=== PATIENT | female | born 1965 | race Caucasian/White ===

== ENCOUNTER → 2017-05-08 15:27 | Outpatient (CLI) | payer BC, SELFPAY ==
--- NOTE | 2017-05-08 15:31 | MM_ITS ---
MM Dig screening mamm BI w/CAD CAD Screening COMPARISON: Digital mammograms 03/02/2015 and 03/11/2016 INDICATION: There is a history of breast cancer in patient's mother diagnosed after menopause. TECHNIQUE: Standard CC and MLO images were obtained. R2 CAD reviewed. FINDINGS: Moderate diffuse fiberglass or densities are seen in the central portions of both breast. The findings are fairly symmetrical bilaterally. There is no new or suspicious lesion in either breast and there are no suspicious microcalcifications. There are fatty replaced nodes in both axilla. IMPRESSION: Stable exam with no suspicious lesion seen BI-RADS Category: 1 Negative RECOMMENDED FOLLOW-UP: 1YR - 1 YEAR FOLLOW-UP (A letter has been sent to the patient regarding results of the study.)
--- NOTE | 2017-05-08 15:31 | XR_ITS ---
XR DEXA axial skeleton HISTORY: ITS.REASON: osteoporosis screen ORDERING PHYSICIAN: Pan Moore MD PATIENT AGE: 51 years COMPARISON: None FINDINGS: The BMD measured at the left femoral neck is 0.820 g/cm squared with a T score of -1.6. This is considered Osteopenic according to the World Health Organization criteria. Fracture risk is Moderate. Treatment is advised. The lumbar spine density is 1.263 g/sq cm with a T score of 0.7 IMPRESSION: Osteopenia. Recommend follow-up exam April 2019
== END ==
PROVIDERS: PCP Physician Assistant; Visit Provider Obstetrics & Gynecology
DX: Z12.31 Encounter for screening mammogram for malignant neoplasm of breast (principal); Z13.820 Encounter for screening for osteoporosis
CPT/HCPCS: 77067; 77080

== ENCOUNTER → 2017-06-15 08:16 | Outpatient (POV) | payer BC, SELFPAY | PROVIDERS: Visit Provider Dermatology | DX: Z00.00 Encounter for general adult medical examination without abnormal findings (principal) ==

== ENCOUNTER → 2017-07-13 14:44 | Outpatient (POV) | payer BC, SELFPAY | PROVIDERS: Visit Provider Dermatology | DX: Z00.00 Encounter for general adult medical examination without abnormal findings (principal) ==

== ENCOUNTER → 2017-12-06 12:37 | Outpatient (CLI) | payer BC, SELFPAY ==
--- NOTE | 2017-12-06 12:43 | XR_ITS ---
XR DEXA axial skeleton HISTORY: ITS.REASON: Osteopenia ORDERING PHYSICIAN: Pan Moore MD PATIENT AGE: 52 years COMPARISON: 05/08/2017 FINDINGS: The BMD measured at the Right femoral neck is 0.810 g/cm squared with a T score of -1.6. This is considered Osteopenic according to the World Health Organization criteria. Fracture risk is Moderate. Treatment is advised. L1 L4 density has a T score of 0.5 which is decreased by 1.7% from the previous study. Hip is essentially unchanged. IMPRESSION: Osteopenia with moderate fracture risk. Treatment suggested. Recommend follow-up exam November 2019 based on these results
== END ==
PROVIDERS: PCP Emergency Medicine; Visit Provider Obstetrics & Gynecology
DX: Z78.0 Asymptomatic menopausal state (principal)
CPT/HCPCS: 77080

== ENCOUNTER → 2018-04-02 09:10 | Outpatient (CLI) | payer BC, SELFPAY ==
--- NOTE | 2018-04-02 09:11 | MM_ITS ---
MM Dig screening mamm BI w/CAD CAD Screening COMPARISON: Digital mammograms with CAD 05/08/2017 and 03/11/2016 INDICATION: There is a history of breast cancer in patient's mother diagnosed after menopause. TECHNIQUE: Standard CC and MLO images were obtained. R2 CAD reviewed. FINDINGS: Prominent diffuse heterogenic fibroglandular densities are seen throughout both breasts. The findings are bilateral and symmetrical. There is no suspicious lesion and there are no suspicious microcalcifications. IMPRESSION: Stable moderately dense and heterogenic parenchymal pattern BI-RADS Category: 1 Negative RECOMMENDED FOLLOW-UP: 1YR - 1 YEAR FOLLOW-UP (A letter has been sent to the patient regarding results of the study.)
== END ==
PROVIDERS: PCP Emergency Medicine; Visit Provider Obstetrics & Gynecology
DX: Z12.31 Encounter for screening mammogram for malignant neoplasm of breast (principal)
CPT/HCPCS: 77067

== ENCOUNTER → 2018-06-14 16:39 | Outpatient (CLI) | payer BC, SELFPAY ==
[2018-06-14 17:29] LABS: Basophils % 0.5 % (0.1-2.0); Eosinophils # 0.3 K/mm3 (0.0-0.4); Eosinophils % 4.2 % (0.1-12.0); Hematocrit 42.2 % (37.0-47.0); Hemoglobin 14.1 g/dL (12.2-16.2); Lymphocytes # 2.1 K/mm3 (0.7-4.5); Lymphocytes % 32.6 % (10-50); Mean Corpuscular HGB Conc 33.4 g/dL (31.8-35.4); Mean Corpuscular Hemoglobin 30.8 pg (27.0-31.2); Mean Corpuscular Volume 92.4 fl (81-99); Mean Platelet Volume 7.6 fl (7.4-10.4); Monocytes # 0.4 K/mm3 (0.1-1.0); Monocytes % 6.1 % (1.7-9.3); Neutrophils # 3.7 K/mm3 (1.8-7.8); Neutrophils % 56.4 % (37.0-80.0); Platelet Count 258 K/mm3 (142-424); Red Blood Count 4.56 M/mm3 (4.20-5.40); Red Cell Distribution Width 13.2 % (11.5-17.5); White Blood Count 6.5 K/mm3 (4.8-10.8)
[2018-06-14 18:11] LABS: Alanine Aminotransferase 72 U/L (12-78); Albumin Level 4.5 gm/dL (3.4-5.0); Albumin/Globulin Ratio 1.5 (1.1-1.8); Alkaline Phosphatase 49 U/L (46-116); Anion Gap 16.1 mEq/L (5-15); Aspartate Amino Transferase 52 U/L (15-37); Bilirubin,Total 0.3 mg/dL (0.2-1.0); Blood Urea Nitrogen 11 mg/dL (7-18); Calcium 9.7 mg/dL (8.5-10.1); Carbon Dioxide 27 mmol/L (21.0-32.0); Chloride 103 mmol/L (98-107); Creatinine,Serum 0.98 mg/dL (0.55-1.02); Estimated Glomerular Filt Rate 60 ml/min (>60); Free T4 (Free Thyroxine) 0.92 ng/dl (0.76-1.46); GFR (African American) 72 ML/MIN (>60); Glucose 111 mg/dL (74-106); Potassium 4.1 mmoL/L (3.5-5.1); Sodium 142 mmol/L (136-145); Thyroid Stimulating Hormone 1.18 uIU/ml (0.358-3.740); Total Protein,Serum 7.5 gm/dL (6.4-8.2)
[2018-06-14 20:53] LABS: Hemoglobin A1C 6.3 % (0.0-7.0)
[2018-06-16 18:10] LABS: Vitamin D 25 Hydroxy 33.3 ng/mL (30.0-100.0)
== END ==
PROVIDERS: Visit Provider Physician Assistant
DX: E11.9 Type 2 diabetes mellitus without complications (principal)
CPT/HCPCS: 80053; 82652; 83036; 84439; 84443; 85025

== ENCOUNTER 2019-03-04 08:30 | Outpatient (RCR) | payer BC, SELFPAY ==
--- NOTE | 2019-02-21 15:29 | HMH.OTOPEV ---
OT Inpatient Evaluation Rehab OT Outpatient Eval Start: 02/21/19 15:09 Freq: Status: Active Protocol: Document 02/21/19 15:09 RMARSHALL (Rec: 02/21/19 15:28 [id number] Electronically Signed By Tip Millard OT 02/21/19 15:09 Outpatient Therapy Subjective History Subjective History Pt is a 53 year old female who reports to therapy for initial evaluation to left elbow. Pt reports in january she began having pain in the lateral aspect of the left elbow. Pt does not recall a specific injury causing pain. 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 Pt has been to the doctor to have the elbow evaluated and was given steroids by mouth and a steroid shot. Pt reports decreased pain after steriods, but with certain motions patient's pain continues. 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 Pt will continue to be seen twice a week in order to address all deficits. Chief Complaint Pain,Weakness,Decreased Hooker Laster Strength Symptom Type Ache,Throb,Sharp,Dull,Stabbing Symptoms Relieved By Rest/Positioning Symptoms Aggravated By Physical Activity,Lifting Prior Functional Limitations None Current Functional Limitations Reaching,Lifting,Housework, Sleeping Symptom Description Intermittent,Pain at Rest Level of pain today (0-10) 0 Pain scale - at its best (0-10) 0 Pain scale - at its worst (0-10) 9 Shoulder/Elbow Eval Shoulder Objective Measurements Elbow Objective Measurements Elbow MMT Left Elbow Flexion Strength Grade 3 Fair Biceps Brachii Strength Grade 3 Fair Brachioradialis Strength Grade 3 Fair Brachialis Strength Grade 3 Fair Brachialis Strength Grade (Flexion) 3 Fair Elbow Extension Strength Grade 3 Fair Triceps Brachii Strength Grade 3 Fair Wrist/Hand Eval Hooker Laster/Pinch Strength Right Hooker Laster Strength Measurement (lbs) 15 Left Hooker Laster Strength Measurement (lbs) 8
== END 2019-03-04 08:35 | disposition home or self-care (01) ==
LOC: OT 08:30
PROVIDERS: PCP Emergency Medicine; Visit Provider Physician Assistant
DX: M70.32 Other bursitis of elbow, left elbow (principal); M77.12 Lateral epicondylitis, left elbow
CPT/HCPCS: 97014; 97035; 97140; 97166; G0283

== ENCOUNTER → 2019-03-25 14:16 | Outpatient (CLI) | payer BC, SELFPAY ==
--- NOTE | 2019-03-25 14:21 | XR_ITS ---
PROCEDURE: XR ELBOW LT MIN 3V CLINICAL INDICATION: Tennis elbow Left elbow pain COMPARISON: No exams were available for comparison FINDINGS: No fracture or dislocation. No lytic or blastic change. There is normal mineralization. The joint spaces are well-preserved. No significant degenerative/arthritic changes. No erosive changes evident. Other findings:None. IMPRESSION: No acute findings. Dictated by: Horace Mcdowell MD 03/25/2019 15:27 Electronically signed by Horace Mcdowell MD in [place] 03/25/2019 15:27
== END ==
PROVIDERS: PCP Emergency Medicine; Visit Provider Orthopaedic Surgery
DX: M77.12 Lateral epicondylitis, left elbow (principal)
CPT/HCPCS: 73080

== ENCOUNTER → 2019-04-30 15:11 | Outpatient (CLI) | payer BC, SELFPAY ==
--- NOTE | 2019-04-30 15:12 | MM_ITS ---
PROCEDURE: MM DIG SCREENING MAMM BI W/CAD CLINICAL INDICATION: screening There is a history of breast cancer patient's mother diagnosed after menopause. COMPARISON: [facility] DIG MAMM-SCREEN CARLOS W/CAD from 03/11/2016 [facility] MM Dig screening mamm BI w/CAD from 05/08/2017 [facility] MM Dig screening mamm BI w/CAD from 04/02/2018 TECHNIQUE: Standard CC and MLO images and 3D Tomosynthesis was obtained. R2 CAD reviewed. FINDINGS: Moderate diffuse somewhat heterogenic fibroglandular densities are seen in both breasts. The findings are bilateral and symmetrical. There is no new or suspicious lesion in either breast and no suspicious microcalcifications. Sukhwinder images were reviewed. IMPRESSION: Moderate breast density with no suspicious lesions seen BI-RAD Category: 1 Negative FOLLOW-UP: 1YR 1 Year Follow-up (A letter has been sent to the patient regarding results of the study.) Dictated by: Dr. Mohamud Claudio MD 05/01/2019 10:[address] Mohamud Claudio MD in [place] 05/01/2019 10:48
--- NOTE | 2019-04-30 15:12 | XR_ITS ---
PROCEDURE: XR DEXA AXIAL SKELETON CLINICAL HISTORY: screening Post menopausal female COMPARISON: No exams were available for comparison FINDINGS: Utilizing the left femoral neck bone mineral density is 0.6 5 grams/squared centimeter. T-score -1.7 would be compatible with osteopenia. Ten year fracture risk for major osteoporotic fracture is calculated to be 11 percent and that for hip fracture 0.6 percent. Using L1 through L4 vertebrae total bone mineral density is 0.98 grams/squared centimeter. T-score -0.[address] the patient in the normal mineralization category. IMPRESSION: Osteopenia of the hip and normal mineralization of the spine Dictated by: Jimbo Sumner 05/01/2019 09:15 Electronically signed by Jimbo Sumner in [place] 05/01/2019 09:15
== END ==
PROVIDERS: PCP Emergency Medicine; Visit Provider Obstetrics & Gynecology
DX: R92.8 Other abnormal and inconclusive findings on diagnostic imaging of breast (principal); Z78.0 Asymptomatic menopausal state; Z13.820 Encounter for screening for osteoporosis
CPT/HCPCS: 77063; 77067; 77080

== ENCOUNTER → 2019-12-10 16:56 | Outpatient (CLI) | payer BC, SELFPAY ==
[2019-12-13 04:28] LABS: FSH 23.2 mIU/mL (.)
== END ==
PROVIDERS: Visit Provider Obstetrics & Gynecology
DX: N95.0 Postmenopausal bleeding (principal)
CPT/HCPCS: 36415; 83001

== ENCOUNTER → 2019-12-17 15:25 | Outpatient (CLI) | payer BC, SELFPAY ==
--- NOTE | 2019-12-17 15:34 | US_ITS ---
PROCEDURE: US TRANSVAGINAL CLINICAL INDICATION: US T/V- post menopausal bleeding COMPARISON: No exams were available for comparison FINDINGS: UTERUS: 8cm x 5cmx 5cm with a combined endometrial thickness of 4.9mm LEFT OVARY: [id number] with a volume of 20.5ml. RIGHT OVARY: [id number] with a volume of 3.3ml. The uterus is retroverted. No uterine mass is evident. The left ovary is enlarged at 5 2 cm containing multiple cysts the largest is at 3 cm and contains a small septation peripherally. The right ovary contains a small septated cyst at 17 mm.. IMPRESSION: Retroverted uterus Bilateral ovarian cysts with thin septations. Consider follow-up to confirm resolution or stability. Dictated by: Horace Mcdowell MD 12/17/2019 18:19 Horace Mcdowell MD in [place] 12/17/2019 18:19
== END ==
PROVIDERS: PCP Physician Assistant; Visit Provider Obstetrics & Gynecology
DX: N95.0 Postmenopausal bleeding (principal)
CPT/HCPCS: 76830

== ENCOUNTER → 2020-03-10 08:55 | Outpatient (CLI) | payer BC, SELFPAY ==
--- NOTE | 2020-03-10 08:55 | US_ITS ---
PROCEDURE: US TRANSVAGINAL Referring Doctor: Kenneth Kebede Patient Age:54Y CLINICAL INDICATION: Look at ovarian cysts and postmenopausal bleeding Amenorrhea for 2 years now with heavy vaginal bleeding. COMPARISON: US US TRANSVAGINAL from 12/17/2019 FINDINGS: uterus: Retroverted normal size: 7.6 cm in length and 4.9 cm AP X 5.7 cm wide. Endometrial stripe of mildly thickened measuring up to 10.6 mm AP . Small nabothian cyst noted but No evident fluid cul-de-sac. Adequate color Doppler flow to both ovaries Right ovary normal size measuring 2.9 cm times 2.1 cm x 2.3 cm. Right ovary with 1.9 cm x 1.8 X 1.6 cm follicular cyst Left ovary enlarged measuring 4.1 cm x 1.8 cm x 1.1 cm. The left ovary contains a 2.7 x 1.4 cm cyst/follicular cyst I would note there has been regression of this left ovarian cysts the the the when compared back to December 2019 IMPRESSION: Normal size retroverted uterus. Generous endometrial stripe-measuring nearly 1.1 cm Left ovary measure 4.1 cm and contains a 2.7 cm cyst; but there has been regression of the left ovarian cyst since December Dictated by: Vidal Valverde MD 03/14/2020 09:47 Vidal Valverde MD in [place] 03/14/2020 09:47
== END ==
PROVIDERS: PCP Physician Assistant; Visit Provider Nurse Practitioner Obstetrics & Gynecology
DX: N83.209 Unspecified ovarian cyst, unspecified side (principal); N95.0 Postmenopausal bleeding
CPT/HCPCS: 76830

== ENCOUNTER → 2020-03-11 08:28 | Outpatient (CLI) | payer BC, SELFPAY ==
[2020-03-11 09:06] LABS: Basophils # 0.1 K/mm3 (0-0.2); Basophils % 1.2 % (0.1-2.0); Eosinophils # 0.1 K/mm3 (0.0-0.4); Eosinophils % 2.4 % (0.1-12.0); Hematocrit 47.1 % (37.0-47.0); Hemoglobin 14.5 g/dL (12.2-16.2); Lymphocytes # 1.8 K/mm3 (0.7-4.5); Lymphocytes % 32.1 % (10-50); Mean Corpuscular HGB Conc 30.7 g/dL (31.8-35.4); Mean Corpuscular Hemoglobin 30.1 pg (27.0-31.2); Mean Platelet Volume 7.1 fl (7.4-10.4); Monocytes # 0.4 K/mm3 (0.1-1.0); Monocytes % 6.3 % (1.7-9.3); Neutrophils # 3.2 K/mm3 (1.8-7.8); Platelet Count 236 K/mm3 (142-424); Red Blood Count 4.81 M/mm3 (4.20-5.40); Red Cell Distribution Width 13.3 % (11.5-17.5); White Blood Count 5.6 K/mm3 (4.8-10.8)
[2020-03-11 09:35] LABS: Chloride 103 mmol/L (98-107); Potassium 4.5 mmoL/L (3.5-5.1); Sodium 139 mmol/L (136-145)
[2020-03-11 09:37] LABS: Alanine Aminotransferase 48 U/L (12-78); Aspartate Amino Transferase 45 U/L (14-36); Blood Urea Nitrogen 15 mg/dl (7-17); Estimated Glomerular Filt Rate 75 ml/min (>60); GFR (African American) 91 ML/MIN (>60)
[2020-03-11 09:38] LABS: Albumin Level 4.6 g/dl (3.5-5.0); Albumin/Globulin Ratio 1.4 (1.1-1.8); Alkaline Phosphatase 74 U/L (38-126); Anion Gap 13.5 mEq/L (5-15); Bilirubin,Total 0.6 mg/dl (0.2-1.3); Calcium 9.7 mg/dl (8.4-10.2); Carbon Dioxide 27 mmol/L (22.0-30.0); Chol/HDL Ratio 2.9 (1-3.5); Cholesterol 201 mg/dl (140-200); Globulin 3.3 g/dL (1.3-3.2); Glucose 143 mg/dl (74-100); HDL Cholesterol 69 mg/dl (40-60); Total Protein,Serum 7.9 g/dl (6.3-8.2); Triglycerides 133 mg/dl (30-150); VLDL Cholesterol 27 mg/dL (0-40)
[2020-03-11 09:51] LABS: Direct LDL Cholesterol 99.21 mg/dL (100-129)
[2020-03-11 09:55] LABS: Triiodothryronine (T3) Uptake 29 % (23.5-40.5)
[2020-03-11 09:56] LABS: Free Thyroxine Index 2.8 ug/dL (5.93-13.13); T4 (Thyroxine) 9.5 ug/dl (5.53-11.0)
[2020-03-11 10:09] LABS: Thyroid Stimulating Hormone 1.93 uIU/mL (0.465-4.68)
[2020-03-12 10:36] LABS: FSH 16.9 mIU/mL (.)
== END ==
PROVIDERS: Visit Provider Nurse Practitioner Obstetrics & Gynecology
DX: Z01.419 Encounter for gynecological examination (general) (routine) without abnormal findings (principal); N95.0 Postmenopausal bleeding; N93.9 Abnormal uterine and vaginal bleeding, unspecified; N95.1 Menopausal and female climacteric states; R53.83 Other fatigue
CPT/HCPCS: 36415; 80053; 80061; 82670; 83001; 83002; 84436; 84443; 84479; 85025

== ENCOUNTER 2021-06-08 11:59 | Emergency (ER) | payer BC, SELFPAY ==
[2021-06-08 14:24] VITALS: BP 141/92; PULSE 101; RESP 20; TEMP 36.6; O2SAT 97; BMI 32.1
[2021-06-08 14:24] LABS: Apearance,Urine Clear (Clear); Bilirubin,Urine Negative (Negative); Blood, Urine 1+ (Negative); Color,Urine Yellow (Yellow); Glucose,Urine (UA) 250 (Negative); Ketones,Urine Negative (Negative); Protein,Urine Negative (Negative); UTC Leukocyte Esterase,Urine Trace (Negative); UTC Nitrate,Urine Negative (Negative); Urobilinogen,Urine 0.2 EU/dl (0.2)
--- NOTE | 2021-06-08 14:46 | HMH.EDUTC ---
[facility] Disposition Clinical Impression: UTI (urinary tract infection) Qualifiers: Urinary tract infection type: site unspecified Hematuria presence: with hematuria Qualified Code(s): N39.0 - Urinary tract infection, site not specified Disposition: Home, Self-Care Condition on Discharge: Good Instructions: Urinary Tract Infection, DI for Urinary Tract Infection (UTI) Additional Instructions: *Increase fluids. Water not Soda or Tea *Start antibiotic immediately and be sure to take as ordered for the FULL length of time although you should start to see improvement over the next 48 hours *Pyridium as needed Remember this medication will turn your urine [place]. This is normal but it will stain what ever it gets on *You should not use Pyridium for more than 48 hours. If so , follow up with your primary physician to review urine culture and ensure that antibiotic is adequate for infection *Be SURE to follow up anytime for new or worsening symptoms with your family doctor. AND in 48 hours for urine culture results with your family doctor, if you do not have a doctor then you may call back to the [facility] for urine culture results and further treatment. We do recommend that you choose and establish care with a Primary Care Physician. AND follow up with them in 10-14 days to repeat UA to ensure infection is resolved and blood no longer present *Be sure to let your PCP know that we sent urine cultures from the [facility] so they can follow up to ensure that you area the on the correct antibiotic Call your doctor office and make appointment for 48 hours (2 days from today) to follow up and get the results of your urine culture and further treatment Make sure to call and make appointment for follow up for monitoring your Diabetes Straight to ER if any life threatening symptoms Prescriptions: Nitrofurantoin Monohyd/M-Cryst [Macrobid 100 mg Capsule] 100 mg PO BID 7 Days #14 cap Transmission Status: Pending to [facility] # Phenazopyridine HCl [Pyridium 200mg Tablet] 200 pow PO TID #6 tab Transmission Status: Pending to [facility] # Referrals: Zahira Olivera PA [Primary Care Provider] - As needed Time of Disposition: 15:15 Medical Decision Making - Jonathan Inquiry Pt receiving controlled substance: No Jonathan was queried for this patient: No Vital Signs: 06/08/21 14:24 Temperature 98 F Temperature Source Oral Pulse Rate [Left] 101 H Respiratory Rate 20 Blood Pressure [Right Arm] 141/92 H Blood Pressure Mean [Right Arm] 108 02 Sat by Pulse Oximetry 97 - Lab Data Lab results reviewed: Yes: I reviewed the patient's lab results. Lab Results 06/08/21 14:23: Urine Color Yellow, Urine Appearance Clear, Urine pH 7.0, Ur Specific [place] 1.020, Urine Protein Negative, Urine Glucose (UA) 250, Urine Ketones Negative, Urine Blood 1+, Urine Nitrate Negative, Urine Bilirubin Negative, Urine Urobilinogen 0.2, Ur Leukocyte Esterase Trace Orders (Tests/Meds): ORDERS Category Date Time Status Urine Culture Stat Micro 06/08/21 15:05 Ordered Medical Decision Narrative: discussed with patient about glucose in urine and patient advised that she controls her diabetes with diet and she will follow up with her PCP for further evaluation and treatment [facility] HPI - General Stated complaint: possible kidney inf Time Seen by Provider: 06/08/21 14:47 Mode of Arrival: Ambulatory Source of Information: Patient Limitations: No Limitations Description of Symptoms (Recalled from Triage Doc. by RN): pt c/o burning and frequent urination. pt states she is also having lower abd pain. HEENT Symptoms (Recalled from RN notes): No Resp Symptoms (Recalled from RN notes): No Skin Symptoms (Recalled from RN notes): No MS Symptoms (Recalled from RN notes): No Functional Status (Recalled from RN notes): wnl - History of Present Illness Provider Complaint: Patient states that she has been having burning with urination and feeli
[2021-06-08 15:33] VITALS: BP 0/0; PULSE 108; RESP 20; TEMP 36.6
== END 2021-06-08 15:35 | disposition home or self-care (01) ==
PROVIDERS: Emergency Provider Nurse Practitioner; PCP Physician Assistant
DX: N30.01 Acute cystitis with hematuria (principal)
CPT/HCPCS: 81003; 87086; 87088; 87186; 99212; G0463

== ENCOUNTER → 2021-06-14 15:57 | Outpatient (CLI) | payer BC, SELFPAY ==
[2021-06-14 13:19] LABS: Basophils # 0.1 K/mm3 (0-0.2); Basophils % 1.4 % (0.1-2.0); Eosinophils # 0.1 K/mm3 (0.0-0.4); Eosinophils % 1.3 % (0.1-12.0); Hematocrit 49.4 % (37.0-47.0); Hemoglobin 15.7 g/dL (12.2-16.2); Lymphocytes # 1.7 K/mm3 (0.7-4.5); Lymphocytes % 28.6 % (10-50); Mean Corpuscular HGB Conc 31.7 g/dL (31.8-35.4); Mean Corpuscular Hemoglobin 31.1 pg (27.0-31.2); Mean Corpuscular Volume 97.9 fl (81-99); Mean Platelet Volume 8.9 fl (7.4-10.4); Monocytes # 0.5 K/mm3 (0.1-1.0); Monocytes % 7.6 % (1.7-9.3); Neutrophils # 3.7 K/mm3 (1.8-7.8); Neutrophils % 61.2 % (37.0-80.0); Platelet Count 287 K/mm3 (142-424); Red Blood Count 5.05 M/mm3 (4.20-5.40); Red Cell Distribution Width 13.4 % (11.5-17.5)
[2021-06-14 13:38] LABS: Hemoglobin A1C 7.5 % (4.0-6.0)
[2021-06-14 14:04] LABS: Alanine Aminotransferase 51 U/L (12-78); Albumin Level 4.8 g/dl (3.5-5.0); Albumin/Globulin Ratio 1.5 (1.1-1.8); Alkaline Phosphatase 51 U/L (38-126); Anion Gap 13.2 mEq/L (5-15); Aspartate Amino Transferase 54 U/L (14-36); Bilirubin,Total 0.8 mg/dl (0.2-1.3); Blood Urea Nitrogen 21 mg/dl (7-17); Calcium 9.8 mg/dl (8.4-10.2); Carbon Dioxide 27 mmol/L (22.0-30.0); Chloride 104 mmol/L (98-107); Chol/HDL Ratio 4.2 (1-3.5); Cholesterol 197 mg/dl (140-200); Estimated Glomerular Filt Rate 104 ml/min (>60); GFR (African American) 126 ML/MIN (>60); Globulin 3.1 g/dL (1.3-3.2); Glucose 94 mg/dl (74-100); HDL Cholesterol 47 mg/dl (40-60); Potassium 5.2 mmoL/L (3.5-5.1); Sodium 139 mmol/L (136-145); Total Protein,Serum 7.9 g/dl (6.3-8.2); Triglycerides 142 mg/dl (30-150); VLDL Cholesterol 28 mg/dL (0-40)
[2021-06-14 14:14] LABS: 25-OH Vitamin D, Total 28.6 ng/mL (30-100)
[2021-06-14 14:15] LABS: Direct LDL Cholesterol 105.46 mg/dL (100-129)
[2021-06-14 14:34] LABS: Thyroid Stimulating Hormone 1.38 uIU/mL (0.465-4.68)
== END ==
PROVIDERS: Visit Provider Physician Assistant
DX: N39.0 Urinary tract infection, site not specified (principal); R81 Glycosuria; E55.9 Vitamin D deficiency, unspecified
CPT/HCPCS: 80053; 80061; 82306; 83036; 84443; 85025; 87086

== ENCOUNTER → 2021-06-18 13:23 | Outpatient (CLI) | payer BC, SELFPAY ==
--- NOTE | 2021-06-18 13:24 | MM_ITS ---
PROCEDURE INFORMATION: Exam: MG Bilateral Screening 3D Mammography Exam date and time: 06/18/2021 1:27 PM Age: 55 years old Clinical indication: Screening examination; Additional info: Screening mammogram TECHNIQUE: Imaging protocol: Bilateral Screening tomosynthesis and 2D mammography including computer-aided detection (CAD) when performed. COMPARISON: 1. MG MM DIG SCREENING MAMM BI W/CAD 04/30/2019 3:45 PM 2. MG [facility] MM Dig screening mamm BI w/CAD 04/02/2018 9:34 AM 3. MG [facility] MM Dig screening mamm BI w/CAD 05/08/2017 3:51 PM 4. MG [facility] DIG MAMM-SCREEN CRALOS W/CAD 03/11/2016 4:27 PM FINDINGS: MAMMOGRAPHY: Breast composition: The breast tissue is composed of scattered areas of fibroglandular density. Mass: No suspicious mass. Architectural distortion: None. Calcifications: No suspicious calcifications. Asymmetric density: None. Skin thickening: None. Axillary adenopathy: None. IMPRESSION: No mammographic evidence of malignancy. Annual screening is recommended unless otherwise clinically indicated. ASSESSMENT: BI-RADS Category 1: Negative
== END ==
PROVIDERS: PCP Physician Assistant; Visit Provider Nurse Practitioner Obstetrics & Gynecology
DX: Z12.31 Encounter for screening mammogram for malignant neoplasm of breast (principal)
CPT/HCPCS: 77063; 77067

== ENCOUNTER → 2021-08-13 09:57 | Outpatient (CLI) | payer BC, SELFPAY | PROVIDERS: PCP Nurse Practitioner Family; Visit Provider Nurse Practitioner Family | DX: L98.9 Disorder of the skin and subcutaneous tissue, unspecified (principal); S90.862D Insect bite (nonvenomous), left foot, subsequent encounter; B95.7 Other staphylococcus as the cause of diseases classified elsewhere | CPT/HCPCS: 87070; 87077; 87186; 87205 ==

== ENCOUNTER → 2021-09-23 07:06 | Outpatient (CLI) | payer BC, SELFPAY ==
[2021-09-22 17:47] LABS: Hemoglobin A1C 5.5 % (4.0-6.0)
== END ==
PROVIDERS: PCP Physician Assistant; Visit Provider Physician Assistant
DX: E11.9 Type 2 diabetes mellitus without complications (principal); Z79.84 Long term (current) use of oral hypoglycemic drugs
CPT/HCPCS: 83036

== ENCOUNTER → 2021-09-30 10:00 | Outpatient (CLI) | payer BC, SELFPAY | PROVIDERS: PCP Physician Assistant; Visit Provider Physician Assistant | DX: U07.1 COVID-19 (principal) | CPT/HCPCS: C9803; U0003; U0005 ==

== ENCOUNTER 2021-12-28 16:30 | Outpatient (RCR) | payer BC, SELFPAY | END 2021-12-28 16:35 | disposition home or self-care (01) | LOC: PT 16:30 | PROVIDERS: PCP Physician Assistant; Visit Provider Nurse Practitioner Family | DX: M25.561 Pain in right knee (principal) | CPT/HCPCS: 97010; 97014; 97110; 97163; G0283 ==

== ENCOUNTER → 2022-02-17 06:36 | Outpatient (CLI) | payer BC, SELFPAY ==
[2022-02-17 17:24] LABS: Adenovirus,PCR Not Detected (NotDetected); Bordetella Pertussis Not Detected (NotDetected); Chlamydophila Pneumoniae, PCR Not Detected (NotDetected); Coronavirus 19, PCR Not Detected (NotDetected); Coronavirus 229E Not Detected (NotDetected); Coronavirus NL63 Not Detected (NotDetected); Coronavirus OC43 Not Detected (NotDetected); Human Metapneumovirus Not Detected (NotDetected); Influenza A, PCR Not Detected (NotDetected); Influenza AH1, 2009 Not Detected (NotDetected); Influenza AH1, PCR Not Detected (NotDetected); Influenza AH3,PCR Not Detected (NotDetected); Influenza B, PCR Not Detected (NotDetected); Mycoplasma Pneumoniae, PCR Not Detected (NotDetected); Parainfluenza 1, PCR Not Detected (NotDetected); Parainfluenza 2, PCR Not Detected (NotDetected); Parainfluenza 3, PCR Not Detected (NotDetected); Respiratory Syncytial Virus Not Detected (NotDetected); Rhinovirus/Enterovirus Not Detected (NotDetected)
[2022-02-18 00:34] LABS: Coronovirus HKU1,PCR Detected (NotDetected); Parainfluenza 4, PCR Detected (NotDetected)
== END ==
PROVIDERS: PCP Nurse Practitioner Family; Visit Provider Nurse Practitioner Family
DX: U07.1 COVID-19 (principal); J20.4 Acute bronchitis due to parainfluenza virus
CPT/HCPCS: 87581; 87632; 87798; C9803; U0003; U0005

== ENCOUNTER → 2022-06-20 16:13 | Outpatient (CLI) | payer BC, SELFPAY ==
--- NOTE | 2022-06-20 16:13 | MM_ITS ---
PROCEDURE INFORMATION: Exam: MG Bilateral Screening 3D Mammography Exam date and time: 06/20/2022 4:05 PM Age: 56 years old Clinical indication: Screening. Her mother had breast cancer in her 70s. TECHNIQUE: Imaging protocol: Bilateral Screening tomosynthesis and 2D mammography including computer-aided detection (CAD) when performed. COMPARISON: 1. MG MM DIG SCREENING MAMM BI W/CAD 06/18/2021 1:27 PM 2. MG MM DIG SCREENING MAMM BI W/CAD 04/30/2019 3:45 PM 3. MG [facility] MM Dig screening mamm BI w/CAD 04/02/2018 9:34 AM 4. MG [facility] MM Dig screening mamm BI w/CAD 05/08/2017 3:51 PM FINDINGS: MAMMOGRAPHY: Breast composition: There are scattered areas of fibroglandular density. Mass: No suspicious mass. Architectural distortion: None. Calcifications: No suspicious calcifications. Asymmetric density: None. Skin thickening: None. Axillary adenopathy: None. IMPRESSION: No mammographic evidence of malignancy. Annual screening is recommended unless otherwise clinically indicated. ASSESSMENT: BI-RADS Category 1: Negative
== END ==
PROVIDERS: PCP Nurse Practitioner Family; Visit Provider Nurse Practitioner Obstetrics & Gynecology
DX: Z12.31 Encounter for screening mammogram for malignant neoplasm of breast (principal)
CPT/HCPCS: 77063; 77067

== ENCOUNTER → 2022-07-23 08:07 | Outpatient (CLI) | payer BC, SELFPAY ==
[2022-07-23 09:42] LABS: Basophils # 0.1 K/mm3 (0-0.2); Basophils % 0.9 % (0.1-2.0); Eosinophils # 0.2 K/mm3 (0.0-0.4); Eosinophils % 3.1 % (0.1-12.0); Hematocrit 46.4 % (37.0-47.0); Hemoglobin 14.7 g/dL (12.2-16.2); Lymphocytes # 1.6 K/mm3 (0.7-4.5); Lymphocytes % 30.9 % (10-50); Mean Corpuscular HGB Conc 31.7 g/dL (31.8-35.4); Mean Corpuscular Hemoglobin 30.1 pg (27.0-31.2); Mean Corpuscular Volume 94.9 fl (81-99); Mean Platelet Volume 7.7 fl (7.4-10.4); Monocytes # 0.4 K/mm3 (0.1-1.0); Neutrophils # 3.1 K/mm3 (1.8-7.8); Neutrophils % 58.2 % (37.0-80.0); Platelet Count 224 K/mm3 (142-424); Red Blood Count 4.89 M/mm3 (4.20-5.40); Red Cell Distribution Width 13.3 % (11.5-17.5); White Blood Count 5.3 K/mm3 (4.8-10.8)
[2022-07-23 10:19] LABS: Alanine Aminotransferase 31 U/L (12-78); Albumin Level 4.4 g/dl (3.5-5.0); Albumin/Globulin Ratio 1.6 (1.1-1.8); Alkaline Phosphatase 50 U/L (38-126); Anion Gap 17.3 mEq/L (5-15); Aspartate Amino Transferase 36 U/L (14-36); Bilirubin,Total 0.6 mg/dl (0.2-1.3); Blood Urea Nitrogen 15 mg/dl (7-17); Carbon Dioxide 28 mmol/L (22.0-30.0); Chloride 98 mmol/L (98-107); Chol/HDL Ratio 3.1 (1-3.5); Cholesterol 156 mg/dl (140-200); Estimated Glomerular Filt Rate 74 ml/min (>60); GFR (African American) 90 ML/MIN (>60); Globulin 2.8 g/dL (1.3-3.2); Glucose 110 mg/dl (74-100); HDL Cholesterol 50 mg/dl (40-60); Potassium 4.3 mmoL/L (3.5-5.1); Sodium 139 mmol/L (136-145); Total Protein,Serum 7.2 g/dl (6.3-8.2); Triglycerides 110 mg/dl (30-150); VLDL Cholesterol 22 mg/dL (0-40)
[2022-07-23 10:31] LABS: Direct LDL Cholesterol 88.67 mg/dL (100-129)
[2022-07-23 11:04] LABS: Hemoglobin A1C 5.9 % (4.0-6.0)
== END ==
PROVIDERS: PCP Physician Assistant; Visit Provider Nurse Practitioner Obstetrics & Gynecology
DX: E11.9 Type 2 diabetes mellitus without complications (principal); Z79.84 Long term (current) use of oral hypoglycemic drugs
CPT/HCPCS: 36415; 80053; 80061; 82306; 83036; 85025

== ENCOUNTER → 2022-08-24 09:05 | Outpatient (CLI) | payer BC, SELFPAY ==
--- NOTE | 2022-08-24 09:06 | XR_ITS ---
FINAL REPORT CLINICAL HISTORY: .menopausal COMPARISON: None FINDINGS: Using L1-4, the bone mineral density of the spine is 1.005 g/cm2, corresponding to T-score of -0.4, within normal range. Using the left hip, the bone mineral density of the femoral neck is 0.688 g/cm2, corresponding to a T-score of -1.5, consistent with low bone density. Using the right hip, the bone mineral density of the femoral neck is 0.749 g/cm2, corresponding to a T-score of -0.9, within normal range. FRAX 10 year fracture risk is 0.5% for a hip fracture and 13% for a major osteoporotic fracture. NOTE: T-score: Standard deviation compared with peak bone mass of young adult mean. *Following the recommendations of the International Society of Bone densitometry, classification of hip BMD is based on the lower of two T-scores; total hip or femoral neck. IMPRESSION: Normal bone mineral density of the lumbar spine and right hip, with diminished bone mineral density in the left hip consistent with low bone density. Reviewed, Interpreted and Dictated by Wang Magaña III, MD Transcribed by Justina Acevdeo Authenticated and . [facility]
== END ==
PROVIDERS: PCP Physician Assistant; Visit Provider Nurse Practitioner Obstetrics & Gynecology
DX: Z78.0 Asymptomatic menopausal state (principal); Z13.820 Encounter for screening for osteoporosis
CPT/HCPCS: 77080

== ENCOUNTER 2022-11-16 10:51 | Emergency (ER) | payer OTHER, BC, SELFPAY ==
--- NOTE | 2022-11-16 11:11 | XR_ITS ---
FINAL REPORT CLINICAL HISTORY: hurt at work, rt knee pain FINDINGS: Right knee Three views were obtained. There is no acute fracture or dislocation. There are mild degenerative changes. Moderate joint effusion is identified. IMPRESSION: Moderate joint effusion. Reviewed, Interpreted and Dictated by Wang Magaña III, MD Transcribed by Karissa Poole Authenticated and [facility]
[2022-11-16 11:30] VITALS: BP 159/93; PULSE 74; RESP 20; TEMP 36.9; O2SAT 96; BMI 29.9
--- NOTE | 2022-11-16 11:40 | EXP.UTC ---
Discharge Plan Disposition Patient Disposition: Home, Self-Care Condition: Good Prescriptions Prescriptions: No Action (DME) blood sugar diagnostic strip See Dose Instructions .ROUTE .MEDSUPPLY Qty: 20 Rx Instructions: As directed (DME) lancets [OneTouch Delica Lancets] 33 gauge misc See Rx Instructions .Route Qty: 100 3RF Rx Instructions: Test glucose TID raloxifene [Evista] 60 mg tablet 60 mg PO DAILY Qty: 30 11RF glipizide 5 mg tablet extended release 24hr 5 mg PO DAILY Qty: 90 3RF ergocalciferol (vitamin D2) 1,250 mcg (50,000 unit) capsule 1,250 mcg PO WEEKLY Qty: 14 3RF (DME) OneTouch Verio test strips Strip See Rx Instructions .ROUTE .MEDSUPPLY Qty: 100 3RF Rx Instructions: Test glucose TID pramipexole 0.5 mg tablet See Rx Instructions .ROUTE .COMPLEX Qty: 90 3RF Dose Instruction: TAKE 1 TABLET AT BEDTIME Rx Instructions: TAKE 1 TABLET AT BEDTIME Referrals Follow up/Referrals: Zahira Olivera PA [Primary Care Provider] - See instructions Aron Najera DO [Staff Physician] - See instructions Activity Restrictions/Add. Instructions Additional Instructions/Restrictions: *weight bearing as tolerated *RICE, Rest the extremity, Ice 15-20 minutes 3-4 times daily, Compress- wear the mariam wrap as discussed as much as possible to help reduce swelling and pain, Elevate the extremity when at rest *knee immobilizer is for support and help control swelling, use it except in the shower. Be sure that is not to tight but not to loose either *Elevate when resting? *Ibuprofen 600-800mg every 6-8 hours as needed for pain an inflammation. If need something more can take Tylenol in between doses of Ibuprofen to help Immediately follow up with your family doctor for new or worsening of symptoms, or no noticeable improvement over the next 3-5 days Call Orthopedic office for appointment Clinical Impressions Clinical Impression: Effusion of knee joint Qualifiers: Laterality: right Qualified Code(s): M25.461 - Effusion, right knee Stand Alone Forms Stand Alone Forms: Work/School Release Instructions Patient Instructions: How To Perform RICE (Rest, Ice, Compress, Elevate), DI for Knee Effusion Discharge ED Provider: Susy Anand [facility] [place] General Stated complaint: WC8/31@work, Rt knee pain Time Seen by Provider: 11/16/22 11:40 History of Present Illness Provider Complaint: Patient state that she was at work on and went to pivot on her right knee when it felt like it bowed on her States that ever since she has been having pain and swelling in her right knee and feels like it is going to give out on her so today when she was still having pain and swelling she came in to get it checked Related Data Home Medications Medication Instructions Recorded Confirmed blood sugar diagnostic #20 ea 04/26/17 07/20/22 Previous Rx's Medication Instructions Recorded lancets 33 gauge (OneTouch Delica #100 ea 06/28/21 Lancets) blood sugar diagnostic (OneTouch #100 ea 03/21/22 Verio test strips) ergocalciferol (vitamin D2) 1,250 1,250 mcg PO WEEKLY #14 caps 03/21/22 mcg (50,000 unit) capsule glipizide 5 mg tablet, extended 5 mg PO DAILY #90 tabs 03/21/22 release 24 hr pramipexole 0.5 mg tablet See Rx Instructions .Route 03/21/22 .COMPLEX #90 tabs raloxifene 60 mg tablet (Evista) 60 mg PO DAILY #30 tabs 03/21/22 Allergies Allergy/AdvReac Type Severity Reaction Status Date / Time clindamycin [From Cleocin] Allergy Mild Verified 07/20/22 15:34 Penicillins [PENICILLINS] Allergy Unknown Verified 07/20/22 15:34 [facility] Disclaimer: The information contained in this section may have been updated after the patient was seen, as this information can be updated by other users. Medical History Diabetes mellitus Diet-controlled diabetes mellitus Osteoporosis
[2022-11-16 12:15] VITALS: BP 159/93; PULSE 74; RESP 20; TEMP 36.9; O2SAT 96
== END 2022-11-16 13:08 | disposition home or self-care (01) ==
PROVIDERS: Emergency Provider Nurse Practitioner; PCP Physician Assistant
DX: M25.461 Effusion, right knee (principal); E11.9 Type 2 diabetes mellitus without complications; G25.81 Restless legs syndrome; M81.0 Age-related osteoporosis without current pathological fracture; X50.1XXA Overexertion from prolonged static or awkward postures, initial encounter
CPT/HCPCS: 73562; 99212; 99214; G0463

== ENCOUNTER → 2022-12-26 14:39 | Outpatient (CLI) | payer OTHER, SELFPAY ==
--- NOTE | 2022-12-26 14:39 | MR_ITS ---
FINAL REPORT CLINICAL HISTORY: right knee pain and instability, medial sided knee pain. COMPARISON: None FINDINGS: Multiplanar MR imaging of the right knee was performed without contrast. There is degenerative signal in the medial meniscus with a tear of the posterior horn extending to the posterior root. There is also medial subluxation of the body of the medial meniscus. The lateral meniscus is intact. The anterior and posterior cruciate ligaments are intact. The medial collateral ligament and lateral ligamentous complex are intact. The patellar and quadriceps tendons are intact. There is no evidence of fracture. There is severe medial and patellofemoral compartment chondromalacia present. There are small osteochondral lesions in the medial tibial plateau and the medial femoral condyle. A moderate sized joint effusion is seen. The musculature is intact. There are several loose bodies posterior to the PCL measuring up to 4 mm in size. IMPRESSION: There is degenerative signal in the medial meniscus with a tear of the posterior horn extending to the posterior root. There is also medial subluxation of the body of the medial meniscus. 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 There are several loose bodies posterior to the PCL as described, with a moderate joint effusion. Reviewed, Interpreted and Dictated by Wang Magaña III, MD Transcribed by Harmony Clayton Authenticated and [facility]
== END ==
PROVIDERS: PCP Physician Assistant; Visit Provider Orthopaedic Surgery
DX: M25.461 Effusion, right knee (principal)
CPT/HCPCS: 73721

== ENCOUNTER → 2023-02-10 08:44 | Outpatient (CLI) | payer BC, SELFPAY ==
[2023-02-10 18:03] LABS: Influenza A, PCR Not Detected (NotDetected); Influenza B, PCR Not Detected (NotDetected)
[2023-02-10 21:33] LABS: Coronavirus 19, PCR Detected (NotDetected)
== END ==
PROVIDERS: PCP Physician Assistant; Visit Provider Family Medicine
DX: J02.9 Acute pharyngitis, unspecified (principal); N39.0 Urinary tract infection, site not specified; U07.1 COVID-19
CPT/HCPCS: 87636

== ENCOUNTER 2023-04-06 21:13 | Outpatient (CLI) | payer BC, SELFPAY | END 2023-04-06 23:59 | LOC: LAB.DROPOF 21:13 | PROVIDERS: PCP Student in an Organized Health Care Education/Training Program; Visit Provider Student in an Organized Health Care Education/Training Program | DX: R35.0 Frequency of micturition (principal); B96.29 Other Escherichia coli [E. coli] as the cause of diseases classified elsewhere; B95.2 Enterococcus as the cause of diseases classified elsewhere | CPT/HCPCS: 87086 ==

== ENCOUNTER 2023-04-17 16:00 | Outpatient (RCR) | payer OTHER, SELFPAY ==
--- NOTE | 2023-01-09 18:10 | HMH.PTOPEV ---
PT Outpatient Evaluation Rehab PT Outpatient Evaluation Start: 01/09/23 15:42 Freq: Status: Active Protocol: Document 01/09/23 15:42 MARILOUBo (Rec: 01/09/23 18:10 MICHAEL [id number]) E-signed By Yajaira Reddy, PT Outpatient Therapy Subjective History Subjective History Pt is a 57 y/o female who reports onset of R medial and posterior knee pain after twisting on the right knee at work at the end of October. Pt reports initial swelling and inability to bear weight through the RLE for ~1 week. Pt had a knee MRI on 12/26/22 with impression of There is degenerative signal in the medial meniscus with a tear of the posterior horn extending to the posterior root. There is also medial subluxation of the body of the medial meniscus. 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 There are several loose bodies posterior to the PCL as described, with a moderate joint effusion. Pt reports pain is getting better overall but she continues to have intermittent brief sharp pain of the posteromedial knee and a dull, ache at night time. Pt reports intermittent locking/ catching of the R knee and feeling of instability at times. Pt denies falls or further injuries. Pt also reports intermttent numbness/ tingling that radiates to the anterior herrera sometimes accompanied by an itching sensation. Pt reports she is cautious and tries to avoid activities that exacerbate pain. 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 Chief Complaint Pain,Spasms,Stiff,Swelling, Catches/Locks,Gives out/ Unstable,Paresthesia Symptom Type Ache,Sharp,Dull,Stabbing Symptoms Relieved By Rest/Positioning,OTC Meds Symptoms Aggravated By Standing,Physical Activity, Twisting,Walking Prior Functional Limitations None Current Functional Limitations Housework,Sleeping,Standing, Squatting,Recreation Activity, Walking,Stairs,Balance Symptom Description Intermittent Level of pain today (0-10) 0 Pain scale - at its best (0-10) 0 Pain scale - at its worst (0-10) 4 Hip/Knee Eval Gait Observation General Gait Pattern Observation Antalgic Gait,Decrease Weight Bear (R) Assistive Device Assistive Devices None / NA Palpation Tenderness right Knee Palpation Finding Tenderness Knee Palpation Overall Comment medial joint line, popliteal fossa, medial femoral condyle MMT Hip Flexion Strength Grade 5 Normal Hip Abduction Strength Grade 4 Good Hip Adduction Strength Grade 5 Normal Hip Extension Strength Grade 4 Good Knee Extension Strength Grade 4- Good- Knee Flexion Strength Grade 4 Good ROM Knee Extension Active Range of Motion ( 0 degrees) Knee Flexion Active Range of Motion ( 125 degrees) Effusion joint effusion knee exam standard right Mid - Patellar Circumerential Measure ( 36 cm) Special Tests Knee Anterior Drawer Test Negative Right Knee Posterior Sag ([place] Drawer) Test Negative Right Knee Valgus Stress Test Negative Right Knee Varus Stress Test Negative Right Knee Mckenna Test Positive Right Lower Extremity Functional Index Activities Today, do you or would you have any difficulty at all with: a.Any of your usual work, housework or A little bit of difficulty school activities b. Your usual hobbies, recreational or A little bit of difficulty sporting activities c. Getting into or out of the bath No difficulty d. Walking between rooms A little bit of difficulty e. Putting on your shoes or socks No difficulty f. Squatting Extreme difficulty or unable to perform activity g. Lifting an object, like a bag of A little bit of difficulty groceries from the floor h. Performing light activities around A little bit of difficulty your home i. Performing heavy activities around Quite a bit of difficulty your home j. Getting into or out of a car A little bit of difficulty k. Walking 2 blocks Moderate difficulty l. Walking a mile Extreme difficulty or unable to perform activity m. Going up or down 10 stairs (about 1 Quite a bit of difficulty flight of stairs) n. Standing for 1 hour No difficulty o. Sitting for 1 hour A little bit of difficulty p. Running on even ground Extreme difficulty or unable to perform activity q. Running on uneven ground Extreme difficulty or unable to perform activity r. Making sharp turns while running fast Quite a bit of difficulty s. Hopping Extreme difficulty or unable to perform activity t. Rolling over in bed No difficulty LEFI Score Lower Extremity Functional Index Score 42 Outpatient Therapy Assessment Impairments Problems/Impairmments Palpation Tenderness,Impaired Range of Motion,Impaired Strength,Impaired Gait Pattern ,Impaired Walking,Impaired Standing,Impaired Stair Climbing,Impaired Incline Stepping,Impaired Squatting, Impaired Running,Impaired Work Activities,Impaired Balance, Increased Edema,Subjective C/O Pain,Impaired Self Care/Self Management Prognosis Rehab Potential Good Clinical Impression Consistent with Diagnosis Yes Short Term Goals Number of Weeks 3 Improve Gait Pattern without Assistive Yes: proper gait mechanics to Device dec fall risk Improve LEFI Score Yes: 52-55/80 to improve overall QOL Improve Self Care/Self Management Yes Patient to be Ind w/ HEP Yes Trial Management Associate Goals Number of Weeks 6 Increase Strength Yes: RLE MMT 5/5 grossly to assist with function Improve Ability to Climb Stairs Yes: 1 flight reciprocally with HR to assist with home/ work navigation Improve Ability to Step on Uneven Yes: walk on playground at [employer] without knee pain/LOB to assist with work Improve Tolerance to Work Activities Yes: perform full shift with R knee pain 2/10 or less Improve LEFI Score Yes: 62-65/80 to improve overall QOL Decrease Subjective C/O Pain Yes: Improve pain at worst to 2/10 to improve overall QOL Patient to be Ind w/ Advanced HEP Yes Outpatient Therapy Plan of Care Treatment Plan May Include Therapeutic Exercise Including Home Yes Exercise Program Manual Therapy Techniques Yes Neuromuscular Re-education Yes Therapeutic Activities to Return to Yes Previous Functional/Work Level Gait Training Yes ADL/Self Care Education Yes Dry Needling Yes Thermal Modalities Yes Electrical Stimulation Yes Ultrasound/Phonophoresis Yes Iontophoresis Yes Orthotics/Bracing/Splinting Yes Vasopneumatic Compression Pump Yes Massage Yes Manual Lymphatic Drainage Yes Eval/Re-Eval Yes Frequency Times per week 2 Duration Number of Weeks 4-6 Addendums This patient is a candidate for social No or vocational rehab? Patient/Guardian verbally acknowledges Yes understanding of treatment program and consents to further treatment? Patient/Guardian verbally acknowledges Yes understanding of diagnosis, prognosis and goals for treatment? Eval Complexity PT Charges 95376 - Low Complexity Shoulder/Elbow Eval Shoulder Objective Measurements Elbow Objective Measurements PHYSICIAN CERTIFICATION: I certify the specified therapy services for Renee Mchugh are required, authorized, and reviewed every 30 days.
--- NOTE | 2023-02-06 17:21 | HMH.RHREAS ---
Rehab Reassessment Rehab OP Re-assessment Start: 01/09/23 15:42 Freq: Status: Active Protocol: Document 02/06/23 16:00 MICHAEL (Rec: 02/06/23 17:20 MICHAEL [id number]) E-signed By Yajaira Reddy PT Lower Extremity Functional Index Activities Today, do you or would you have any difficulty at all with: a.Any of your usual work, housework or A little bit of difficulty school activities b. Your usual hobbies, recreational or No difficulty sporting activities c. Getting into or out of the bath No difficulty d. Walking between rooms No difficulty e. Putting on your shoes or socks No difficulty f. Squatting Quite a bit of difficulty g. Lifting an object, like a bag of No difficulty groceries from the floor h. Performing light activities around No difficulty your home i. Performing heavy activities around A little bit of difficulty your home j. Getting into or out of a car No difficulty k. Walking 2 blocks No difficulty l. Walking a mile No difficulty m. Going up or down 10 stairs (about 1 Moderate difficulty flight of stairs) n. Standing for 1 hour No difficulty o. Sitting for 1 hour No difficulty p. Running on even ground A little bit of difficulty q. Running on uneven ground Moderate difficulty r. Making sharp turns while running fast Moderate difficulty s. Hopping Quite a bit of difficulty t. Rolling over in bed No difficulty LEFI Score Lower Extremity Functional Index Score 65 Rehab Re-assessment Subjective Subjective Pt reports she feels >90% improved since starting PT. Pt reports overall she feels more confident at work in the stability and strength of her right knee such as when lifting kids. Pt reports she does still have difficulty and noted weakness standing up from low surfaces such as the chairs at work and descending stairs reciprocally. Pt reports she has to either turn sideways or go down stairs one step at a time due to pain /weakness. Pt reports she has been avoiding activities such as chasing after kids due to fear of further injuring the knee. Pt reports pain at worst as 3-4/10 on VAS scale that is brief and sharp in nature. Pt also reports pain seems to be worse at night time and often wakes her up although she also has restless leg syndrome. Pt reports she often takes Ibuprofen at night time to assist with this. Pt reports she is supposed to return to her MD in April for a follow-up visit. Objective Objective Notes R knee AROM: 0-125 RLE MMT: hip abd 4+/5, hip ext 4+/5, hip add 5/5, hip flexion 5/5, knee ext 4+/5, knee flex 5/5 Gait: non-antalgic with proper mechanics Noted weakness and fasiculations with eccentric quadricep strengthening Assessment Progress Assessment Progressing as Expected Assessment Notes Pt has attended 6 PT visits consisting of aerobic exercise , LE stretching/strengthening, VMO & eccentric quadricep strengthening, modalities and HEP with good tolerance. Pt demonstrated improved gait, LE strength, LEFS score and subjective report of pain this date compared to the initial evaluation. Pt continues to demonstrate muscle weakness and pain with descending stairs and standing from low surfaces such as chairs at work. Pt would continue to benefit from skilled PT to further improve pain, eccentric quadricep strength, hip strength and functional/ occupational activity tolerance to assist with return to PLOF. Patient goals met ST/4 LT/7 Goals Not Met LE strength, stairs, p! severity at worst Revised Goals n/a Plan Plan Continue initial POC Frequency of Therapy 2x/week Duration of therapy 2-3 more weeks Time and Billing Re-Eval Time 10 Re-Eval Billing Units 1 PHYSICIAN CERTIFICATION: I certify the specified therapy services for Renee Mchugh are required, authorized, and reviewed every 30 days.
--- NOTE | 2023-03-09 10:26 | HMH.RHREAS ---
Rehab Reassessment Rehab OP Re-assessment Start: 01/09/23 15:42 Freq: Status: Active Protocol: Document 03/09/23 08:58 CYALYSA (Rec: 03/09/23 10:26 CYALYSA [id number]) E-signed By Yajaira Reddy PT Lower Extremity Functional Index Activities Today, do you or would you have any difficulty at all with: a.Any of your usual work, housework or A little bit of difficulty school activities b. Your usual hobbies, recreational or No difficulty sporting activities c. Getting into or out of the bath No difficulty d. Walking between rooms No difficulty e. Putting on your shoes or socks No difficulty f. Squatting Moderate difficulty g. Lifting an object, like a bag of No difficulty groceries from the floor h. Performing light activities around No difficulty your home i. Performing heavy activities around A little bit of difficulty your home j. Getting into or out of a car No difficulty k. Walking 2 blocks No difficulty l. Walking a mile Moderate difficulty m. Going up or down 10 stairs (about 1 Moderate difficulty flight of stairs) n. Standing for 1 hour A little bit of difficulty o. Sitting for 1 hour No difficulty p. Running on even ground Quite a bit of difficulty q. Running on uneven ground Quite a bit of difficulty r. Making sharp turns while running fast Quite a bit of difficulty s. Hopping Quite a bit of difficulty t. Rolling over in bed No difficulty LEFI Score Lower Extremity Functional Index Score 59 Rehab Re-assessment Subjective Subjective Pt reports she has been experiencing 3/10 pain with prolonged standing, walking, deep squatting, pivoting and stair climbing. Pt reports last week she had to stand for a long time at work in a costume and lean forward with her knees locked which caused increased pain for the next few days. Pt reports descending the stairs is getting somewhat better, but at times she still notices her leg shaking and instability of the knee. Pt reports she has stumbled some because of knee instabiltiy, denies falls . Pt reports she has been wearing a knee brace at home to assist with pivoting/stairs and when standing/walking for prolonged periods which seems to help some with stability. Pt reports compliance with HEP. Objective Objective Notes Palpation: medial and lateral joint lines, medial and lateral posterior knee R knee AROM: 0-140 RLE MMT: hip abd 4+/5, hip ext 5/5, hip add 5/5, hip flexion 5/5, knee ext 4+/5, knee flex 5/5 Noted weakness and fasiculations with eccentric quadricep strengthening - tolerating progressed strengthening well with minimal pain Assessment Assessment Notes Pt has attended 10 PT visits consisting of aerobic exercise , LE stretching/strengthening, VMO & eccentric quadricep strengthening, modalities and HEP with good tolerance. The pt demonstrated improved R knee AROM and slight improvement in hip strength this date compared to the previous reassessment. Pt demonstrated slight decrease in LEFS score this date with worsening difficulty and pain with prolonged standing, walking, deep quatting, pivoting and stair climbing following a work event for the holiday. Pt continues to report quadricep weakness with descending stairs and difficulty with knee stability requiring use of a knee brace with certain activities. Pt would continue to benefit from skilled PT to further improve pain, hip strength, knee stability/proprioception and eccentric quadricep strengthening to assist with functional and occupational activities and prevent further injury to the knee. Patient goals met LT/7 Goals Not Met quad/hip abd strength, stair climbing, p! severity at worst , LEFS Revised Goals n/a Plan Plan Continue initial POC, focus on eccentric quad strengthening and knee stability/ proprioception Frequency of Therapy 1-2x/week Duration of therapy 4 more weeks Time and Billing Re-Eval Time 12 Re-Eval Billing Units 1 PHYSICIAN CERTIFICATION: I certify the specified therapy services for Renee Mchugh are required, authorized, and reviewed every 30 days.
--- NOTE | 2023-04-17 17:01 | HMH.RHREAS ---
Rehab Reassessment Rehab OP Re-assessment Start: 01/09/23 15:42 Freq: Status: Active Protocol: Document 04/17/23 15:53 MICHAEL (Rec: 04/17/23 17:00 CYALYSA [id number]) E-signed By Yajaira Reddy PT Lower Extremity Functional Index Activities Today, do you or would you have any difficulty at all with: a.Any of your usual work, housework or No difficulty school activities b. Your usual hobbies, recreational or A little bit of difficulty sporting activities c. Getting into or out of the bath No difficulty d. Walking between rooms No difficulty e. Putting on your shoes or socks No difficulty f. Squatting A little bit of difficulty g. Lifting an object, like a bag of No difficulty groceries from the floor h. Performing light activities around A little bit of difficulty your home i. Performing heavy activities around A little bit of difficulty your home j. Getting into or out of a car No difficulty k. Walking 2 blocks No difficulty l. Walking a mile No difficulty m. Going up or down 10 stairs (about 1 A little bit of difficulty flight of stairs) n. Standing for 1 hour No difficulty o. Sitting for 1 hour No difficulty p. Running on even ground A little bit of difficulty q. Running on uneven ground A little bit of difficulty r. Making sharp turns while running fast Moderate difficulty s. Hopping A little bit of difficulty t. Rolling over in bed No difficulty LEFI Score Lower Extremity Functional Index Score 70 Rehab Re-assessment Subjective Subjective Pt reports her right knee is doing really well overall. Pt reports she has been performing work activities without pain. Pt reports intermittent stinging pain of the right posterior knee when she is laying down resting, otherwise denies true pain. Pt reports minimal soreness with increased activity and certain movements . Pt reports she is able to descend stairs better without pain and less shakiness of her leg; however, it does still feel weak and requires increased time to descend stairs reciprocally. Pt reports she returns to her MD next week on 04/25/23. Objective Objective Notes R knee AROM: 0-140 RLE MMT: 5/5 grossly Continued noted weakness and fasiculations with eccentric quadricep strengthening Assessment Progress Assessment Progressing as Expected Assessment Notes Pt has attended 14 PT visits consisting of aerobic exercise , LE stretching/strengthening, VMO & eccentric quadricep strengthening, balance/ poprioception training and HEP with good tolerance. Pt demonstrated improved LEFS score and improved subjective report of pain this date compared to the previous reassessment. Pt continues to demonstrate eccentric quadricep weakness requiring increased time with descending steps but is able to negotiate them safely. Pt has met all PT goals and is appropriate to discharge to independent HEP. Patient goals met LT/7 Goals Not Met n/a Revised Goals n/a Plan Plan Discharge to independent HEP Time and Billing Re-Eval Time 10 Re-Eval Billing Units 1 PHYSICIAN CERTIFICATION: I certify the specified therapy services for Renee Mchugh are required, authorized, and reviewed every 30 days.
== END 2023-04-17 17:00 | disposition home or self-care (01) ==
LOC: PT 16:00
PROVIDERS: Visit Provider Orthopaedic Surgery
DX: M25.561 Pain in right knee (principal); S83.221A Peripheral tear of medial meniscus, current injury, right knee, initial encounter
CPT/HCPCS: 97014; 97016; 97035; 97110; 97163; 97164; 97530; G0283

== ENCOUNTER 2023-06-26 15:11 | Outpatient (CLI) | payer BC, SELFPAY ==
--- NOTE | 2023-06-26 15:14 | XR_ITS ---
FINAL REPORT CLINICAL HISTORY: puncture wound of R foot COMPARISON: None FINDINGS: RIGHT FOOT 3 views of the right foot were obtained. There is no acute fracture or dislocation. Visualized joint spaces are normally aligned. Soft tissues are unremarkable. There is a small plantar spur present. IMPRESSION: No acute bony abnormality. Reviewed, Interpreted and Dictated by Daryl Obrien MD Transcribed by FLORINDA Resendiz Authenticated and [facility]
== END 2023-06-26 23:59 ==
LOC: RAD 15:12
PROVIDERS: PCP Student in an Organized Health Care Education/Training Program; Visit Provider Student in an Organized Health Care Education/Training Program
DX: M79.671 Pain in right foot (principal); W45.0XXA Nail entering through skin, initial encounter
CPT/HCPCS: 73630

== ENCOUNTER 2023-07-04 15:26 | Outpatient (CLI) | payer BC, SELFPAY ==
--- NOTE | 2023-07-04 15:29 | MM_ITS ---
PROCEDURE INFORMATION: Exam: MG Bilateral Screening 3D Mammography Exam date and time: 07/04/2023 3:29 PM Age: 57 years old Clinical indication: Screening examination TECHNIQUE: Imaging protocol: Bilateral Screening tomosynthesis and 2D mammography including computer-aided detection (CAD) when performed. COMPARISON: 1. MG MM DIG SCREENING MAMM BI W/CAD 06/20/2022 4:05 PM 2. MG MM DIG SCREENING MAMM BI W/CAD 06/18/2021 1:27 PM FINDINGS: MAMMOGRAPHY: Breast composition: There are scattered areas of fibroglandular density. Mass: None. Architectural distortion: None. Calcifications: No suspicious calcifications. Asymmetric density: None. Skin thickening: None. Axillary adenopathy: None. IMPRESSION: No mammographic evidence of malignancy. Annual screening is recommended unless otherwise clinically indicated. ASSESSMENT: BI-RADS Category 1: Negative
== END 2023-07-04 23:59 | disposition home or self-care (01) ==
LOC: RAD 15:27
PROVIDERS: PCP Student in an Organized Health Care Education/Training Program; Visit Provider Nurse Practitioner Obstetrics & Gynecology
DX: Z12.31 Encounter for screening mammogram for malignant neoplasm of breast (principal)
CPT/HCPCS: 77063; 77067

== ENCOUNTER 2023-08-14 11:55 | Outpatient (CLI) | payer BC, SELFPAY ==
[2023-08-14 19:04] LABS: Basophils # 0.1 K/mm3 (0-0.2); Eosinophils # 0.3 K/mm3 (0.0-0.4); Eosinophils % 5.2 % (0.1-12.0); Hematocrit 45.9 % (37.0-47.0); Hemoglobin 14.7 g/dL (12.2-16.2); Lymphocytes # 1.8 K/mm3 (0.7-4.5); Lymphocytes % 27.6 % (10-50); Mean Corpuscular HGB Conc 31.9 g/dL (31.8-35.4); Mean Corpuscular Volume 97.3 fl (81-99); Mean Platelet Volume 9.1 fl (7.4-10.4); Monocytes # 0.4 K/mm3 (0.1-1.0); Monocytes % 5.6 % (1.7-9.3); Neutrophils # 3.9 K/mm3 (1.8-7.8); Neutrophils % 60.7 % (37.0-80.0); Platelet Count 231 K/mm3 (142-424); Red Blood Count 4.72 M/mm3 (4.20-5.40); Red Cell Distribution Width 13.7 % (11.5-17.5); White Blood Count 6.5 K/mm3 (4.8-10.8)
[2023-08-14 19:28] LABS: Alanine Aminotransferase 32 U/L (12-78); Albumin Level 4.3 g/dl (3.5-5.0); Albumin/Globulin Ratio 1.4 (1.1-1.8); Alkaline Phosphatase 51 U/L (38-126); Anion Gap 13.1 mEq/L (5-15); Aspartate Amino Transferase 36 U/L (14-36); Bilirubin,Total 0.7 mg/dl (0.2-1.3); Blood Urea Nitrogen 15 mg/dl (7-17); Calcium 9.5 mg/dl (8.4-10.2); Carbon Dioxide 26 mmol/L (22.0-30.0); Chloride 105 mmol/L (98-107); Chol/HDL Ratio 3.7 (1-3.5); Cholesterol 175 mg/dl (140-200); Estimated Glomerular Filt Rate 87 ml/min (>60); GFR (African American) 105 ML/MIN (>60); Globulin 3.1 g/dL (1.3-3.2); Glucose 182 mg/dl (74-100); HDL Cholesterol 47 mg/dl (40-60); Potassium 4.1 mmoL/L (3.5-5.1); Sodium 140 mmol/L (136-145); Total Protein,Serum 7.4 g/dl (6.3-8.2); Triglycerides 104 mg/dl (30-150); VLDL Cholesterol 21 mg/dL (0-40)
[2023-08-14 19:39] LABS: Direct LDL Cholesterol 98.99 mg/dL (100-129)
[2023-08-14 19:45] LABS: 25-OH Vitamin D, Total 35.7 ng/mL (30-100)
[2023-08-14 21:46] LABS: Hemoglobin A1C 6.2 % (4.0-6.0)
== END 2023-08-14 23:59 | disposition home or self-care (01) ==
LOC: LAB.DROPOF 08-16 11:55
PROVIDERS: PCP Physician Assistant; Visit Provider Physician Assistant
DX: E11.649 Type 2 diabetes mellitus with hypoglycemia without coma (principal); Z79.84 Long term (current) use of oral hypoglycemic drugs; Z68.30 Body mass index [BMI] 30.0-30.9, adult
CPT/HCPCS: 80053; 80061; 82306; 83036; 84443; 85025

== ENCOUNTER 2023-12-18 13:45 | Outpatient (CLI) | payer BC, SELFPAY ==
[2023-12-18 18:10] LABS: Microscopic, Urine URINE MICROSCOPIC (MICROSCOPIC)
[2023-12-18 18:41] LABS: Appearance,Urine CLEAR (Clear); Bilirubin,Urine Negative (Negative); Blood, Urine 1+ (Negative); Color,Urine YELLOW (Yellow); Glucose,Urine (UA) Negative (Negative); Ketones,Urine TRACE (Negative); Leukocyte Esterase,Urine Negative (Negative); Nitrate,Urine Negative (Negative); PH,Urine 6.5 (5.0-8.5); Protein,Urine Negative (Negative); Urobilinogen,Urine 0.2 EU/dl (0.2)
[2023-12-18 18:48] LABS: Bacteria,Urine 1+ /lpf
== END 2023-12-18 23:59 | disposition home or self-care (01) ==
LOC: LAB.DROPOF 12-19 10:36
PROVIDERS: PCP Family Medicine; Visit Provider Family Medicine
DX: R31.9 Hematuria, unspecified (principal); R05.9 Cough, unspecified
CPT/HCPCS: 81001; 87086; 87635

== ENCOUNTER 2024-02-06 15:43 | Outpatient (POV) | payer BC, SELFPAY | END 2024-02-06 23:59 | disposition home or self-care (01) | LOC: SC 15:43 | PROVIDERS: PCP Family Medicine; Visit Provider Specialist/Technologist | DX: Z00.00 Encounter for general adult medical examination without abnormal findings (principal) ==

== ENCOUNTER 2024-03-11 09:29 | Outpatient (CLI) | payer BC, SELFPAY ==
[2024-03-11 18:41] LABS: Basophils # 0.1 K/mm3 (0-0.2); Eosinophils # 0.4 K/mm3 (0.0-0.4); Eosinophils % 5.5 % (0.1-12.0); Hemoglobin 14.4 g/dL (12.2-16.2); Monocytes # 0.5 K/mm3 (0.1-1.0)
[2024-03-11 19:00] LABS: Alanine Aminotransferase 55 U/L (12-78); Albumin Level 4.5 g/dl (3.5-5.0); Albumin/Globulin Ratio 1.8 (1.1-1.8); Alkaline Phosphatase 51 U/L (38-126); Aspartate Amino Transferase 53 U/L (14-36); Bilirubin,Total 0.4 mg/dl (0.2-1.3); Blood Urea Nitrogen 16 mg/dl (7-17); Calcium 9.5 mg/dl (8.4-10.2); Carbon Dioxide 26 mmol/L (22.0-30.0); Chloride 106 mmol/L (98-107); Chol/HDL Ratio 3.7 (1-3.5); Cholesterol 186 mg/dl (140-200); Estimated Glomerular Filt Rate 74 ml/min (>60); GFR (African American) 89 ML/MIN (>60); Globulin 2.5 g/dL (1.3-3.2); Glucose 127 mg/dl (74-100); HDL Cholesterol 50 mg/dl (40-60); Sodium 140 mmol/L (136-145); Triglycerides 272 mg/dl (30-150); VLDL Cholesterol 54 mg/dL (0-40)
[2024-03-11 19:10] LABS: Basophils % 0.8 % (0.1-2.0); Direct LDL Cholesterol 103.64 mg/dL (100-129); Hematocrit 42.7 % (37.0-47.0); Lymphocytes # 2.5 K/mm3 (0.7-4.5); Lymphocytes % 34.1 % (10-50); Mean Corpuscular HGB Conc 33.7 g/dL (31.8-35.4); Mean Corpuscular Hemoglobin 30.8 pg (27.0-31.2); Mean Corpuscular Volume 91.2 fl (81-99); Mean Platelet Volume 10.5 fl (7.4-10.4); Monocytes % 7.3 % (1.7-9.3); Neutrophils # 3.8 K/mm3 (1.8-7.8); Platelet Count 223 K/mm3 (142-424); Red Blood Count 4.68 M/mm3 (4.20-5.40); Red Cell Distribution Width 12.9 % (11.5-17.5); White Blood Count 7.3 K/mm3 (4.8-10.8)
[2024-03-11 21:58] LABS: Creatinine,Urine Random 73 mg/dL (Not Estab.)
[2024-03-11 22:09] LABS: Microalbumin < 6.000 mg/L (0-16.7)
[2024-03-11 22:54] LABS: Hemoglobin A1C 6.6 % (4.0-6.0)
== END 2024-03-11 23:59 | disposition home or self-care (01) ==
LOC: LAB.DROPOF 03-12 09:30
PROVIDERS: PCP Family Medicine; Visit Provider Family Medicine
DX: R31.9 Hematuria, unspecified (principal); E11.649 Type 2 diabetes mellitus with hypoglycemia without coma; Z79.84 Long term (current) use of oral hypoglycemic drugs
CPT/HCPCS: 80053; 80061; 82043; 82570; 83036; 85025

== ENCOUNTER 2024-03-27 07:39 | Outpatient (CLI) | payer BC, SELFPAY ==
--- NOTE | 2024-03-27 07:39 | CT_ITS ---
FINAL REPORT TECHNIQUE: Axial CT of the abdomen and pelvis, without and with IV contrast. This study was performed with techniques to keep radiation doses as low as reasonably achievable, (ALARA). Individualized dose reduction techniques using automated exposure control or adjustment of mA and/or kV according to the patient's size were employed. CLINICAL HISTORY: hematuria COMPARISON: None FINDINGS: Abdomen: Fatty infiltration of the liver is present. The spleen, pancreas and adrenal glands are unremarkable. The gallbladder has been surgically resected. Precontrast imaging shows no renal stone disease. Postcontrast imaging of the kidneys shows no mass or obstruction. Delayed 10-minute images are normal of both the kidneys and the upper ureters. No bowel obstruction or fluid collection is seen. Pelvis: The appendix is unremarkable in appearance. An IUD is present in the uterus. Pelvic bowel loops are unremarkable. No fluid collection or adenopathy is seen. The bladder is poorly distended. IMPRESSION: No evidence of renal stones, ureteral obstruction, or mass seen in the kidneys. Fatty infiltration of the liver is present. Reviewed, Interpreted and Dictated by Abraham Huizar MD Transcribed by Harmony Clayton Authenticated and [facility]
[2024-03-27] MEDS: IOPAMIDOL-370 (76%);100ML BOTTLE 75 ML IV (08:54)
[2024-03-27] MEDS: SODIUM CHLORIDE 0.9% 10ML SYR (RAD ONLY) 10 ML IV (08:54)
== END 2024-03-27 23:59 | disposition home or self-care (01) ==
LOC: RAD 07:39
PROVIDERS: PCP Family Medicine; Visit Provider Family Medicine
DX: R31.9 Hematuria, unspecified (principal)
CPT/HCPCS: 74178; Q9967

== ENCOUNTER 2024-04-01 17:02 | Outpatient (CLI) | payer BC, SELFPAY ==
[2024-04-01 14:56] LABS: Microscopic, Urine URINE MICROSCOPIC (MICROSCOPIC)
[2024-04-01 15:46] LABS: Appearance,Urine CLEAR (Clear); Bilirubin,Urine Negative (Negative); Blood, Urine Negative (Negative); Color,Urine YELLOW (Yellow); Glucose,Urine (UA) 1+ (Negative); Ketones,Urine Negative (Negative); Leukocyte Esterase,Urine Negative (Negative); Nitrate,Urine Negative (Negative); Protein,Urine Negative (Negative); Specific Gravity, Urine <= 1.005 (1.005-1.030); Urobilinogen,Urine 0.2 EU/dl (0.2)
[2024-04-01 16:26] LABS: Bacteria,Urine Trace /lpf; Squamous Epithelial Cell,Urine Occasional #/hpf (0-5); WBC,Urine Occasional #/hpf (0-3)
== END 2024-04-01 23:59 | disposition home or self-care (01) ==
LOC: LAB.DROPOF 17:02
PROVIDERS: PCP Urology; Visit Provider Urology
DX: R31.9 Hematuria, unspecified (principal)
CPT/HCPCS: 81001

== ENCOUNTER 2024-05-03 07:28 | Day surgery (SDC) | payer BC, SELFPAY ==
[2024-05-01 17:04] VITALS: BMI 29.0
[2024-05-03 07:59] VITALS: BP 122/76; PULSE 81; RESP 18; TEMP 36.6; O2SAT 95
[2024-05-03 08:01] LABS: POC Glucose,Bedside 253 (70-110)
--- NOTE | 2024-05-03 08:06 | P.PCN_ITS ---
[facility] Procedure Note Date: 05/03/24 Time: 08:06 Procedure Note:: Chart review: Patient is here for cystoscopy. She is having bouts of intermittent gross hematuria. Since last visit she may have had a breakthrough urinary tract infection. She had a day or 2 history of gross hematuria. She was again placed on 3 days of Bactrim. She continues to use Estrace vaginal cream. The patient is troubled somewhat stress urinary incontinence but not to the point of surgical intervention. Preop diagnosis: Hematuria/UTI Postop diagnosis: Hematuria/UTI/urethritis Operative note: The patient was brought to the cystoscopy suite. She is prepped and draped in sterile fashion a catheterized urine culture and sensitivity has been collected. Patient underwent flexible cystoscopy. The bladder itself is [place] pink in color throughout without evidence of bladder stone tumor hemorrhage or infection. The ureteral orifice ease are normal bilaterally with clear E flux of urine. The patient's urethra however is fragile and inflammatory. She has urethritis in the urethra wants to lose just from passage of this catheter. She tolerated the procedure well. She does appear to have some yeast vaginitis. Some going to place her suppressive on Proloprim 100 mg daily and suppressed with Diflucan. She will continue the Estrace vaginal cream.
[2024-05-03] MEDS: 0.9 % SODIUM CHLORIDE 500 ML 25 ML IV (08:21)
[2024-05-03 08:24] VITALS: BP 148/84; PULSE 83; RESP 16; TEMP 36.4; O2SAT 96
[2024-05-03 14:08] LABS: Microscopic, Urine URINE MICROSCOPIC (MICROSCOPIC)
[2024-05-03 14:12] LABS: Appearance,Urine CLEAR (Clear); Bilirubin,Urine Negative (Negative); Blood, Urine TRACE-I (Negative); Color,Urine YELLOW (Yellow); Glucose,Urine (UA) 2+ (Negative); Ketones,Urine Negative (Negative); Leukocyte Esterase,Urine Negative (Negative); Nitrate,Urine Negative (Negative); Protein,Urine Negative (Negative); Specific Gravity, Urine <= 1.005 (1.005-1.030); Urobilinogen,Urine 0.2 EU/dl (0.2)
[2024-05-03 14:40] LABS: Bacteria,Urine Trace /lpf
== END 2024-05-03 08:30 | disposition home or self-care (01) ==
PROVIDERS: PCP Family Medicine; Visit Provider Urology
PROC: 0TJB8ZZ Inspection of Bladder, Via Natural or Artificial Opening Endoscopic (ICD-10-PCS; CPT 52000; principal; 2024-05-03 08:30)
DX: R31.0 Gross hematuria (principal); N34.2 Other urethritis; N76.0 Acute vaginitis
CPT/HCPCS: 52000; 81001; 82962

== ENCOUNTER 2024-06-03 12:00 | Outpatient (CLI) | payer BC, SELFPAY ==
[2024-06-03 15:08] LABS: Microscopic, Urine URINE MICROSCOPIC (MICROSCOPIC)
[2024-06-03 15:46] LABS: Appearance,Urine CLEAR (Clear); Bilirubin,Urine Negative (Negative); Blood, Urine SMALL (Negative); Color,Urine YELLOW (Yellow); Glucose,Urine (UA) Negative (Negative); Ketones,Urine Negative (Negative); Leukocyte Esterase,Urine Negative (Negative); Nitrate,Urine Negative (Negative); PH,Urine 5.5 (5.0-8.5); Protein,Urine Negative (Negative); Specific Gravity, Urine 1.025 (1.005-1.030); Urobilinogen,Urine 0.2 EU/dl (0.2)
[2024-06-03 16:14] LABS: WBC,Urine Occasional #/hpf (0-3)
== END 2024-06-03 23:59 | disposition home or self-care (01) ==
LOC: LAB.DROPOF 06-04 13:11
PROVIDERS: PCP Urology; Visit Provider Urology
DX: R39.9 Unspecified symptoms and signs involving the genitourinary system (principal)
CPT/HCPCS: 81001

== ENCOUNTER 2024-08-08 15:32 | Outpatient (CLI) | payer BC, SELFPAY ==
--- NOTE | 2024-08-08 16:00 | MM_ITS ---
PROCEDURE INFORMATION: Exam: MG Bilateral Screening 3D Mammography Exam date and time: 08/08/2024 3:51 PM Age: 58 years old Clinical indication: Screening examination. Family history of breast carcinoma. TECHNIQUE: Imaging protocol: Bilateral Screening tomosynthesis and 2D mammography including computer-aided detection (CAD) when performed. COMPARISON: 1. MG MM DIG SCREENING MAMM BI W/CAD 07/04/2023 3:29 PM 2. MG MM DIG SCREENING MAMM BI W/CAD 06/20/2022 4:05 PM 3. MG MM DIG SCREENING MAMM BI W/CAD 06/18/2021 1:27 PM 4. MG MM DIG SCREENING MAMM BI W/CAD 04/30/2019 3:45 PM 5. MG MM DIG SCREENING MAMM BI W/CAD 08/08/2024 3:51 PM 6. 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 Mass: No suspicious masses. Architectural distortion: No suspicious distortion. Calcifications: No suspicious calcifications. Asymmetric density: None. Skin thickening: None. Axillary adenopathy: None. IMPRESSION: 1. No mammographic evidence of malignancy. Annual screening is recommended unless otherwise clinically indicated. 2. Given the reported risk factors for this patient, a breast cancer risk assessment may prove useful for further evaluation. ASSESSMENT: BI-RADS Category 1: Negative.
== END 2024-08-08 23:59 | disposition home or self-care (01) ==
LOC: RAD 15:32
PROVIDERS: PCP Family Medicine; Visit Provider Nurse Practitioner Obstetrics & Gynecology
DX: Z12.31 Encounter for screening mammogram for malignant neoplasm of breast (principal); R92.323 Mammographic fibroglandular density, bilateral breasts
CPT/HCPCS: 77063; 77067

== ENCOUNTER 2024-08-14 08:34 | Outpatient (CLI) | payer BC, SELFPAY | END 2024-08-14 23:59 | disposition home or self-care (01) | LOC: RAD 08:34 | PROVIDERS: PCP Family Medicine; Visit Provider Nurse Practitioner Obstetrics & Gynecology | DX: R69 Illness, unspecified (principal) ==

== ENCOUNTER 2024-09-02 16:02 | Outpatient (CLI) | payer BC, SELFPAY ==
[2024-09-02 14:41] LABS: Microscopic, Urine URINE MICROSCOPIC (MICROSCOPIC)
[2024-09-02 15:16] LABS: Appearance,Urine CLEAR (Clear); Bilirubin,Urine Negative (Negative); Blood, Urine TRACE-I (Negative); Color,Urine YELLOW (Yellow); Glucose,Urine (UA) Negative (Negative); Ketones,Urine Negative (Negative); Leukocyte Esterase,Urine Negative (Negative); Nitrate,Urine Negative (Negative); Protein,Urine Negative (Negative); Specific Gravity, Urine <= 1.005 (1.005-1.030); Urobilinogen,Urine 0.2 EU/dl (0.2)
[2024-09-02 15:40] LABS: Squamous Epithelial Cell,Urine Occasional #/hpf (0-5)
[2024-09-02 15:41] LABS: Bacteria,Urine Trace /lpf
== END 2024-09-02 23:59 | disposition home or self-care (01) ==
LOC: LAB.DROPOF 16:03
PROVIDERS: PCP Urology; Visit Provider Urology
DX: N94.10 Unspecified dyspareunia (principal); R31.9 Hematuria, unspecified
CPT/HCPCS: 81001

== ENCOUNTER 2024-09-24 07:50 | Outpatient (CLI) | payer BC, SELFPAY ==
[2024-09-24 08:08] LABS: Hematocrit 43.4 % (37.0-47.0); Hemoglobin 14.2 g/dL (12.2-16.2); Immature Granulocytes % 0.2 %; Mean Corpuscular HGB Conc 32.7 g/dL (31.8-35.4); Mean Corpuscular Hemoglobin 30.8 pg (27.0-31.2); Mean Corpuscular Volume 94.1 fl (81-99); Nucleated Red Blood Cells % 0 %; Platelet Count 231 K/mm3 (142-424); Red Blood Count 4.61 M/mm3 (4.20-5.40); Red Cell Distribution Width-SD 44.6 fL; White Blood Count 5.0 K/mm3 (4.8-10.8)
[2024-09-24 08:31] LABS: Alanine Aminotransferase 64 U/L (12-78); Albumin Level 4.6 g/dl (3.5-5.0); Albumin/Globulin Ratio 1.7 (1.1-1.8); Alkaline Phosphatase 48 U/L (38-126); Anion Gap 14.5 mEq/L (5-15); Aspartate Amino Transferase 56 U/L (14-36); Bilirubin,Total 0.7 mg/dl (0.2-1.3); Blood Urea Nitrogen 14 mg/dl (7-17); Calcium 9.5 mg/dl (8.4-10.2); Carbon Dioxide 29 mmol/L (22.0-30.0); Chloride 101 mmol/L (98-107); Cholesterol 174 mg/dl (140-200); Creatinine,Serum 0.70 mg/dl (0.52-1.04); Estimated Glomerular Filt Rate 86 ml/min (>60); GFR (African American) 104 ML/MIN (>60); Globulin 2.7 g/dL (1.3-3.2); Glucose 148 mg/dl (74-100); HDL Cholesterol 48 mg/dl (40-60); Potassium 4.5 mmoL/L (3.5-5.1); Sodium 140 mmol/L (136-145); Total Protein,Serum 7.3 g/dl (6.3-8.2); Triglycerides 122 mg/dl (30-150)
[2024-09-24 08:59] LABS: Thyroid Stimulating Hormone 2.06 uIU/mL (0.465-4.68)
== END 2024-09-24 23:59 | disposition home or self-care (01) ==
LOC: LAB 07:50
PROVIDERS: PCP Family Medicine; Visit Provider Nurse Practitioner Obstetrics & Gynecology
DX: R53.83 Other fatigue (principal)
CPT/HCPCS: 36415; 80053; 80061; 84443; 85025

== ENCOUNTER 2024-12-02 14:54 | Outpatient (CLI) | payer BC, SELFPAY ==
[2024-12-02 14:28] LABS: Microscopic, Urine URINE MICROSCOPIC (MICROSCOPIC)
[2024-12-02 15:50] LABS: Bilirubin,Urine Negative (Negative); Color,Urine YELLOW (Yellow); Glucose,Urine (UA) Negative (Negative); Ketones,Urine Negative (Negative); Leukocyte Esterase,Urine Negative (Negative); PH,Urine 6.0 (5.0-8.5); Protein,Urine Negative (Negative); Specific Gravity, Urine 1.010 (1.005-1.030); Urobilinogen,Urine 0.2 EU/dl (0.2)
[2024-12-02 16:04] LABS: Bacteria,Urine 1+ /lpf
== END 2024-12-02 23:59 | disposition home or self-care (01) ==
LOC: LAB.DROPOF 14:54
PROVIDERS: PCP Urology; Visit Provider Urology
DX: R31.9 Hematuria, unspecified (principal)
CPT/HCPCS: 81001

== ENCOUNTER 2025-01-09 06:45 | Outpatient (CLI) | payer BC, SELFPAY ==
[2025-01-09 08:14] LABS: Albumin Level 3.5 g/dl (3.5-5.0); Chloride 102 mmol/L (98-107); Potassium 4.3 mmoL/L (3.5-5.1); Sodium 137 mmol/L (136-145)
[2025-01-09 08:16] LABS: Alanine Aminotransferase 45 U/L (12-78); Aspartate Amino Transferase 42 U/L (14-36); Blood Urea Nitrogen 17 mg/dl (7-17); Creatinine,Serum 0.80 mg/dl (0.52-1.04); Estimated Glomerular Filt Rate 74 ml/min (>60); GFR (African American) 89 ML/MIN (>60)
[2025-01-09 08:17] LABS: Albumin/Globulin Ratio 0.9 (1.1-1.8); Alkaline Phosphatase 50 U/L (38-126); Anion Gap 9.3 mEq/L (5-15); Bilirubin,Total 0.4 mg/dl (0.2-1.3); Calcium 9.4 mg/dl (8.4-10.2); Carbon Dioxide 30 mmol/L (22.0-30.0); Cholesterol 185 mg/dl (140-200); Globulin 4.1 g/dL (1.3-3.2); Glucose 120 mg/dl (74-100); HDL Cholesterol 52 mg/dl (40-60); Total Protein,Serum 7.6 g/dl (6.3-8.2); Triglycerides 110 mg/dl (30-150)
[2025-01-09 08:18] LABS: Cholesterol 188 mg/dl (140-200)
[2025-01-09 11:17] LABS: Hemoglobin A1C 6.1 % (4.0-6.0)
== END 2025-01-09 23:59 | disposition home or self-care (01) ==
LOC: LAB 06:45
PROVIDERS: Nurse Practitioner Obstetrics & Gynecology; PCP Family Medicine; Visit Provider Family Medicine
DX: E78.5 Hyperlipidemia, unspecified (principal); E11.9 Type 2 diabetes mellitus without complications; R79.89 Other specified abnormal findings of blood chemistry; R53.83 Other fatigue
CPT/HCPCS: 36415; 80053; 80061; 82465; 83036